=== PATIENT | male | born 2000 | race Caucasian/White ===

== ENCOUNTER 2021-01-04 19:00 | Emergency (ER) | payer BC ==
[~2021-01-04] VITALS: Ht 177.8 cm; Wt 122.7 kg
[2021-01-04 19:20] VITALS: TEMP 98.8
[2021-01-04] MEDS ORDERED: PEPCID 20MG TAB20 MG PO (21:02)
[2021-01-04] MEDS ORDERED: PREDNISONE20 MG PO (21:02)
[2021-01-04 22:42] VITALS: BP 142/84; PULSE 80
== END 2021-01-04 22:42 | disposition home or self-care (01) ==
LOC: COL.ER 19:00
DX: T78.40XA Allergy, unspecified, initial encounter (principal)
CPT/HCPCS: J1200; J2930

== ENCOUNTER 2022-01-30 16:01 | Emergency (ER) | payer BC ==
[~2022-01-30] VITALS: Ht 177.8 cm; Wt 112.3 kg
[~2022-01-30 16:01] MED LIST: PEPCID 20MG TAB20 MG PO; PREDNISONE20 MG PO
[2022-01-30 17:57] LABS: BASO # 0.1 K/mm3 (0.0-0.2); BASO % 1.2 % (0.0-2.0); EOS # 0.3 K/mm3 (0.0-0.7); EOS % 4.3 % (0.0-4.0); GRAN # 4.8 K/mm3 (1.4-6.5); GRAN % 61.5 % (42.2-75.2); HEMATOCRIT 45.7 % (36.0-47.0); LYMPH % 25.6 % (20.0-51.0); MEAN CELL VOLUME 82 fl (80.0-95.0); MEAN CORPUSCULAR HEMOGLOBIN 27 pg (26-32); MEAN CORPUSCULAR HGB CONC 33 g/dl (33.0-37.0); MEAN PLATELET VOLUME 10.5 fl (7.4-10.4); MONO # 0.6 K/mm3 (0.1-0.6); MONO % 7.1 % (1.7-9.3); PLATELET COUNT 210 K/mm3 (130-400); RED BLOOD COUNT 5.61 M/mm3 (4.20-5.60); REDCELL DISTRIBUTION WIDTH-CV 12.3 % (11.5-14.5)
[2022-01-30 18:15] LABS: BILIRUBIN,TOTAL 0.8 mg/dL (0.2-1.2); CALCIUM 10.7 mg/dL (8.4-10.2); CREATININE, serum 0.94 mg/dL (0.72-1.25); POTASSIUM 3.8 mmol/L (3.5-4.5); TOTAL PROTEIN 7.8 gm/dL (6.2-8.1)
[2022-01-30 18:21] LABS: TROPONIN-I 0.013 ng/mL (0.00-0.033)
[2022-01-30 19:08] VITALS: BP 129/87; PULSE 64; TEMP 98.2
== END 2022-01-30 19:19 | disposition home or self-care (01) ==
LOC: COL.ER 16:01
PROVIDERS: Nurse Practitioner
DX: R07.89 Other chest pain (principal)